=== PATIENT | male | born 1990 | race Caucasian/White ===

== ENCOUNTER 2018-09-18 17:53 | Emergency (ER) | payer OTHER ==
[~2018-09-18] VITALS: Ht 177.8 cm; Wt 80.7 kg
[2018-09-18 18:12] VITALS: Ht 177.8 cm; Wt 80.7 kg
[2018-09-18 18:41] VITALS: BP 131/83
== END 2018-09-18 18:41 | disposition home or self-care (01) ==
LOC: ED 17:53
DX: Z00.00 Encounter for general adult medical examination without abnormal findings (principal); M79.605 Pain in left leg; R20.2 Paresthesia of skin